=== PATIENT | female | born 1965 | race Caucasian/White ===

== ENCOUNTER 2016-09-14 14:31 | Emergency (ER) | payer BC ==
[2016-09-14 15:16] VITALS: RESP 18
--- NOTE | 2016-09-14 15:42 | ED ---
Head Injury HPI - General Chief complaint: Head Injury Stated complaint: Head Injury/Kicked/Horse Time Seen by Provider: 09/14/16 15:30 Source: patient, RN notes reviewed Mode of arrival: ambulatory Limitations: no limitations - History of Present Illness Initial comments: This is a 51-year-old female who states she was pushed backwards by a horse when a bed and was doing a procedure. She fell backwards and hurt her left arm and her neck and did bump her head. She had the headache it was moderate in severity and global she denies any focal deficits her upper or lower extremities a visual changes any nausea vomiting or other symptoms. [facility] was seen [facility] and had x-rays performed which showed evidence of no fractures she was placed in a soft collar for cervical strain but she was instructed to come here for evaluation for head injury. She does have a lump on the back of her head she states she again had no loss of consciousness is had no nausea vomiting. She does complain of a headache. She does state her last tetanus shot was 2 years ago. No prior history of concussion or head injury. MD Complaint: head injury - Related Data Home Medications Medication Instructions Recorded Confirmed Acetaminophen [Tylenol] 650 mg PO Q6HR PRN 09/14/16 09/14/16 Ibuprofen [Motrin] 400 mg PO Q6HR PRN 09/14/16 09/14/16 Allergies/Adverse reactions: Allergies Allergy/AdvReac Type Severity Reaction Status Date / Time latex Allergy Rash/Hives Verified 09/14/16 15:35 Review of Systems ROS Statement: Those systems with pertinent positive or pertinent negative responses have been documented in the HPI. ROS Other: All systems not noted in ROS Statement are negative. Past Medical History Past Medical History: No Reported History History of Any Multi-Drug Resistant Organisms: None Reported Past Surgical History: Orthopedic Surgery Additional Past Surgical History / Comment(s): arm Past Psychological History: No Psychological Hx Reported Smoking Status: Never smoker Past Alcohol Use History: Occasional Past Drug Use History: None Reported General Exam - General Exam Comments Initial Comments: This is a well-developed well-nourished awake alert oriented 3 female she does demonstrate a [place] Coma Scale of 15 Limitations: no limitations General appearance: alert, in no apparent distress Head exam: Present: normocephalic, other (There is a approximately 3 cm diameter hematoma noted to the parietal occipital scalp midline to left. There is about a 3 mm abrasion laceration with no active bleeding no formed by seen no suture repair indicated. No step-off no crepitation.) Eye exam: Present: normal appearance, PERRL, EOMI. Absent: scleral icterus, conjunctival injection, periorbital swelling ENT exam: Present: normal exam, mucous membranes moist Neck exam: Present: normal inspection, other (The patient does have a soft collar on her some tenderness palpation over the lateral neck musculature no spinous process tenderness.). Absent: tenderness, meningismus, lymphadenopathy Respiratory exam: Present: normal lung sounds bilaterally. Absent: respiratory distress, wheezes, rales, rhonchi, stridor Cardiovascular Exam: Present: regular rate, normal rhythm, normal heart sounds. Absent: systolic murmur, diastolic murmur, rubs, gallop, clicks GI/Abdominal exam: Present: soft, normal bowel sounds. Absent: distended, tenderness, guarding, rebound, rigid Extremities exam: Present: normal inspection, full ROM, normal capillary refill. Absent: tenderness, pedal edema, joint swelling, calf tenderness Back exam: Present: normal inspection Neurological exam: Present: alert, oriented X3, CN II-XII intact Psychiatric exam: Present: normal affect, normal mood Skin exam: Present: warm, dry, normal color. Absent: intact, rash Course Vital Signs 09/14/16 15:13 Temperature 98.0 F Pulse Rate 72 Respiratory 18 Rate Blood Pressure 161/76 O2 Sat by Pulse 100 Oximetry Medical Decision Making - Medical Decision Making I did discuss the findings with the patient. She will follow-up for an MRI. She does have a metal plate in her left forearm she's not sure whether this is paraspinal or not she will find out from her orthopedist. The CAT scan was negative for acute findings but as stated above there is evidence of dilatation of the right lateral ventricle - Radiology Data Radiology results: report reviewed (I did review the imaging and report no evidence of acute findings there is however evidence of dilatation of the right lateral ventricle is unclear whether this is a congenital finding versus something new. MRI is recommended.), image reviewed Disposition Clinical Impression: Contusion of scalp, Scalp abrasion, Cervical strain Disposition: HOME SELF-CARE Condition: Good Instructions: Abrasion (ED), Scalp Contusion in Adults (ED) Additional Instructions: Outpatient MRI of the brain as discussed. Follow up with [facility] for evaluation of the left upper extremity hardware and see if MRI is contraindicated.
--- NOTE | 2016-09-14 16:05 | CT ---
EXAMINATION TYPE: CT brain wo con DATE OF EXAM: 09/14/2016 3:54 PM COMPARISON: NONE HISTORY: 51-year-old female with left-sided head injury. TECHNIQUE: Examination was done in axial plane without intravenous contrast. Coronal and sagittal r econstructions performed. CT DLP: 1058 mGycm Automated exposure control for dose reduction was used. FINDINGS: There is no evidence of acute intracranial hemorrhage, acute ischemic changes, mass effect, or extra -axial fluid collection. There is no effacement of cerebral sulci or basal subarachnoid cisterns. T here is no hydrocephalus. There is no midline shift. [place]-white matter distinction is preserved. Asymmetric prominence to the temporal horn of the right lateral ventricle probably congenital variati on. The possibility of an intraventricular lesion such as a cyst is not entirely excluded. Scattered mild mucosal thickening within the ethmoid air cells. Orbits and globes are intact. Mastoid air cells well pneumatized. No calvarial fracture. IMPRESSION: 1. No acute intracranial abnormality seen. 2. Asymmetric dilatation of the temporal horn of the right lateral ventricle could represent congenit al variation. The possibility of an underlying intraventricular lesion is not entirely excluded. Foll ow-up contrast enhanced MRI can further evaluate. This is felt to be an incidental finding.
[2016-09-14 16:33] VITALS: BP 143/74; PULSE 74; TEMP 98.3
== END 2016-09-14 16:30 | disposition home or self-care (01) ==
LOC: EC 14:31
DX: S16.1XXA Strain of muscle, fascia and tendon at neck level, initial encounter (principal); S00.03XA Contusion of scalp, initial encounter; Z91.040 Latex allergy status; W19.XXXA Unspecified fall, initial encounter
CPT/HCPCS: 70450; 99283

== ENCOUNTER 2017-08-02 08:12 | Day surgery (SDC) | payer BC ==
[2017-07-31 13:33] VITALS: BMI 24.3
[~2017-08-02 08:12] MED LIST: LACTATED RINGERS 1,000 ML IV SCH
[2017-08-02 08:34] VITALS: RESP 16
[2017-08-02 08:37] VITALS: TEMP 98.7
[2017-08-02] MEDS ORDERED: LIDOCAINE 1% 20 ML VIAL (10MG/ML) FOR IV START INTRADERMA ONE (08:48)
[2017-08-02] MEDS ORDERED: PROPOFOL 10 MG/ML 20 ML VIAL IV ONE (09:35)
[2017-08-02] MEDS ORDERED: LIDOCAINE 1% INJ 10MG/ML (20 ML MDV) ONE (09:35)
--- NOTE | 2017-08-02 09:40 | P.GSHP ---
History of Present Illness H&P Date: 08/02/17 Chief Complaint: Colon cancer screening Patient here today for colonoscopy. Last colonoscopy 5 years ago. She had 2 polyps at that time. No bowel related complaints. She has a grandmother and uncle with a history of colon cancer. Past Medical History Past Medical History: No Reported History Additional Past Medical History / Comment(s): Mitral Valve Prolapse. History of Any Multi-Drug Resistant Organisms: None Reported Past Surgical History: Breast Surgery, Orthopedic Surgery Additional Past Surgical History / Comment(s): L arm with plate. D&C x 4. Breast bx's. Past Anesthesia/Blood Transfusion Reactions: Postoperative Nausea & Vomiting ( PONV) Additional Past Anesthesia/Blood Transfusion Reaction / Comment(s): Difficulty waking up. Smoking Status: Never smoker - Past Family History Father Family Medical History: Deep Vein Thrombosis (DVT) Mother Family Medical History: No Reported History Medications and Allergies Home Medications Medication Instructions Recorded Confirmed Type Ascorbic Acid [Vitamin C] 500 mg PO DAILY 07/31/17 08/02/17 History Cholecalciferol [Vitamin D3] 400 unit PO DAILY@1200 07/31/17 08/02/17 History Allergies Allergy/AdvReac Type Severity Reaction Status Date / Time latex Allergy Rash/Hives Verified 08/02/17 08:38 Surgical - Exam Vital Signs Resp 16 08/02/17 08:33 Physical exam: General: Well-developed, well-nourished HEENT: Normocephalic, sclerae nonicteric Abdomen: Nontender, nondistended Extremities: No edema Neuro: Alert and oriented Assessment and Plan (1) Colon cancer screening Narrative/Plan: Will proceed with colonoscopy at this time Current Visit: Yes Status: Acute Code(s): Z12.11 - ENCOUNTER FOR SCREENING FOR MALIGNANT NEOPLASM OF COLON SNOMED Code(s): 926778785
--- NOTE | 2017-08-02 09:56 | P.PCN ---
Date of Procedure: 08/02/17 Procedure(s) Performed: PREOPERATIVE DIAGNOSIS: Colon cancer screening, history of polyps POSTOPERATIVE DIAGNOSIS: Tortuous colon unable to advance beyond descending colon PROCEDURE: Attempted/incomplete colonoscopy ANESTHESIA: MAC SURGEON: Logan Rodríguez M.D. SPECIMENS: None ENDOSCOPIC PROCEDURE: The patient was placed on the endoscopy table in the left decubitus position. The Olympus colonoscope was inserted into the anus and passed under direct visualization to the mid descending colon. The patient had moderate tortuosity throughout the sigmoid colon. I was somewhat surprised but we were unable to advance the scope more proximally despite a variety of position changes and abdominal wall pressure. The visualized descending sigmoid and rectum appeared normal. There is no visible diverticulosis. Digital rectal examination was normal. The patient was taken to the recovery room in stable condition per anesthesia guidelines. RECOMMENDATIONS: Will offer barium enema to this patient.
[2017-08-02 10:24] VITALS: BP 144/88; PULSE 77
--- NOTE | 2017-08-02 11:50 | XR ---
EXAMINATION TYPE: XR KUB DATE OF EXAM: 08/02/2017 CLINICAL DATA: 52-year-old female postcolonoscopy, BE Remote Sensing Analyst, H COMPARISON: None FINDINGS: Supine imaging limited for assessment of free air. Prominent air distention of the colon especially t he cecum and ascending colon. There is underdistention of the mid descending colon. Multiple pelvic p hleboliths. Nonobstructive bowel gas pattern. IMPRESSION: Prominent air distention of the colon especially the right side of the colon. Focal underdistention o f the mid descending colon. Patient is status post colonoscopy. Barium enema rescheduled due to exces sive air.
== END 2017-08-02 10:49 | disposition home or self-care (01) ==
LOC: ORWHC2ENDO 08:12
PROVIDERS: ATTEND Surgery
DX: Z12.11 Encounter for screening for malignant neoplasm of colon (principal); Q43.8 Other specified congenital malformations of intestine; K63.89 Other specified diseases of intestine; Z86.010 Personal history of colon polyps; Z80.0 Family history of malignant neoplasm of digestive organs; I34.1 Nonrheumatic mitral (valve) prolapse; Z91.040 Latex allergy status
CPT/HCPCS: 74018; J2001; J2704; G0104; 45378

== ENCOUNTER → 2017-08-03 | Outpatient (CLI) | payer BC ==
--- NOTE | 2017-08-04 11:33 | FL ---
EXAMINATION TYPE: FL barium enema w air contrast DATE OF EXAM: 08/03/2017 CLINICAL HISTORY: 52-year-old female incomplete colonoscopy yesterday due to sigmoid colon tortuosity . Benign polyps removed on screening colonoscopy 5 years ago. Comparison: Radiographs 08/02/2017 TECHNIQUE: A double contrast barium enema study is performed. 1700 mL of Polibar was utilized. Total fluoroscopy time: 1 minute 48 seconds. Total images: 87 (though many are sent over as duplicates) COMPARISON: None. FINDINGS: Telecommunication Lines Repairer view of the abdomen nonobstructive bowel gas pattern. Interval decrease in the degree of air di stention of the colon. Multiple pelvic phleboliths. There was some technical difficulty and emptying the colon after contrast filling due to tortuosity o f both the sigmoid colon and transverse colon. In addition, after air administration, there are many areas of the colon that have irregular and gran ular appearance suggesting poor/nonuniform coating or residual stool. This causes limitation and dete ction of small, less than 1 cm polyps. A few diverticula are noted along the mid sigmoid. No evidence of any mass or sizable polyp, obstruct ing or constricting lesion throughout the colon. The terminal ileum was refluxed and appears within normal limits. IMPRESSION: 1. Some limitations in this study due to tortuosity of both the sigmoid and transverse colons. 2. Additional limitation due to either poor or nonuniform coating versus residual stool. This limits assessment for small, less than 1 cm polyps. 3. Mild diverticulosis of the mid sigmoid. 4. No definite suspicious lesion is identified.
== END | disposition home or self-care (01) ==
LOC: RADFLMAIN 08:00
PROVIDERS: ATTEND Surgery
DX: K63.5 Polyp of colon (principal); K62.1 Rectal polyp; K57.30 Diverticulosis of large intestine without perforation or abscess without bleeding
CPT/HCPCS: 74280

== ENCOUNTER → 2018-05-21 | Outpatient (CLI) | payer BC ==
--- NOTE | 2018-05-24 16:53 | MM ---
Reason for exam: screening (asymptomatic). Last mammogram was performed 1 year and 1 month ago. History: Patient is postmenopausal. Family history of breast cancer in paternal cousin at age 40 and breast cancer in paternal grandmother at age 67. Benign excisional biopsy of the left breast, 2012. Benign cyst aspiration of the right breast, 2002. Benign excisional biopsy of the right breast, 2002. MG 3D Screening Mammo W/Cad Bilateral CC and MLO view(s) were taken. Prior study comparison: April 24, 2017, bilateral MG 3d screening mammo w/cad. April 13, 2016, bilateral MG 3d screening mammo w/cad. The breast tissue is heterogeneously dense. This may lower the sensitivity of mammography. There is a left upper outer quadrant mass at 2:30 that appears to have increased in density. There are benign-appearing bilateral calcifications. No suspicious right breast abnormality. ASSESSMENT: Incomplete: need additional imaging evaluation, BI-RAD 0 RECOMMENDATION: Ultrasound of the left breast. Ultrasound left upper outer quadrant
== END ==
LOC: RADMAMWWP 08:21
PROVIDERS: ATTEND Obstetrics & Gynecology
DX: Z12.31 Encounter for screening mammogram for malignant neoplasm of breast (principal)
CPT/HCPCS: 77063; 77067

== ENCOUNTER → 2018-06-04 | Outpatient (CLI) | payer BC ==
--- NOTE | 2018-06-05 09:20 | USB ---
Reason for exam: additional evaluation requested from abnormal screening. History: Patient is postmenopausal. Family history of breast cancer in paternal cousin at age 40 and breast cancer in paternal grandmother at age 67. Benign excisional biopsy of the left breast, 2012. Benign cyst aspiration of the right breast, 2002. Benign excisional biopsy of the right breast, 2002. Physical Findings: Nurse Summary: bilateral upper outer quadrant nodularity, movable (nurse mj). US Breast Workup Limited LT Left limited breast ultrasound including focal area of concern, retroareolar and axilla demonstrates a 0.4 x 0.3 x 0.3cm oval, cystic lesion at 3 o'clock. These results were verbally communicated with the patient and result sheet given to the patient on 06/04/18. ASSESSMENT: Probably benign, BI-RAD 3 RECOMMENDATION: Follow-up diagnostic mammogram and ultrasound of the left breast in 6 months.
== END | disposition home or self-care (01) ==
LOC: RADUSWWP 09:59
PROVIDERS: ATTEND Obstetrics & Gynecology
DX: R92.8 Other abnormal and inconclusive findings on diagnostic imaging of breast (principal)

== ENCOUNTER → 2018-12-05 | Outpatient (CLI) | payer BC ==
--- NOTE | 2018-12-06 10:19 | MM ---
Reason for exam: follow-up at short interval from prior study. Last mammogram was performed 7 months ago. History: Patient is postmenopausal. Family history of breast cancer in paternal cousin at age 40 and breast cancer in paternal grandmother at age 67. Benign excisional biopsy of the left breast, 2012. Benign cyst aspiration of the right breast, 2002. Benign excisional biopsy of the right breast, 2002. Physical Findings: Nurse did not find any significant physical abnormalities on exam. MG 3D Diag Mammo W/Cad LT CC and MLO view(s) were taken of the left breast. Prior study comparison: May 21, 2018, bilateral MG 3d screening mammo w/cad. April 24, 2017, bilateral MG 3d screening mammo w/cad. The breast tissue is heterogeneously dense. This may lower the sensitivity of mammography. There is a stable left upper outer quadrant middle depth mass back to 2016. No suspicious abnormality on the left. This finding is changed when compared with previous exams. These results were verbally communicated with the patient and result sheet given to the patient on 12/05/18. ASSESSMENT: Benign, BI-RAD 2 RECOMMENDATION: Follow-up diagnostic mammogram of both breasts in 6 months. Back on schedule for May 2019.
--- NOTE | 2018-12-06 10:21 | USB ---
Reason for exam: follow-up at short interval from prior study. History: Patient is postmenopausal. Family history of breast cancer in paternal cousin at age 40 and breast cancer in paternal grandmother at age 67. Benign excisional biopsy of the left breast, 2012. Benign cyst aspiration of the right breast, 2002. Benign excisional biopsy of the right breast, 2002. US Breast Limited LT Left limited breast ultrasound including focal area of concern, retroareolar and axilla demonstrates a 4 x 3 x 3mm oval, cystic lesion at 3 o'clock, unchanged in size, appears cystic on real time imaging, a 5 x 4 x 3mm lobular, cystic cluster at 3 o'clock and a 6mm oval, solid, lymph node at the axilla tail, morphologically normal. These results were verbally communicated with the patient and result sheet given to the patient on 12/05/18. ASSESSMENT: Probably benign, BI-RAD 3 RECOMMENDATION: Ultrasound of the left breast in 6 months.
== END | disposition home or self-care (01) ==
LOC: RADMAMWWP 07:37
PROVIDERS: ATTEND Obstetrics & Gynecology
DX: R92.8 Other abnormal and inconclusive findings on diagnostic imaging of breast (principal)
CPT/HCPCS: 77061; 77065

== ENCOUNTER → 2019-06-21 | Outpatient (CLI) | payer BC ==
--- NOTE | 2019-06-21 10:24 | MM ---
Reason for exam: follow-up at short interval from prior study. Last mammogram was performed 6 months ago. History: Patient is postmenopausal. Family history of breast cancer in paternal cousin at age 40 and breast cancer in paternal grandmother at age 67. Benign excisional biopsy of the left breast, 2012. Benign cyst aspiration of the right breast, 2002. Benign excisional biopsy of the right breast, 2002. Physical Findings: Nurse did not find any significant physical abnormalities on exam. MG 3D Diag Mammo W/Cad [facility] Bilateral CC and MLO view(s) were taken. Prior study comparison: December 05, 2018, left breast MG 3d diag mammo w/cad LT. May 21, 2018, bilateral MG 3d screening mammo w/cad. The breast tissue is heterogeneously dense. This may lower the sensitivity of mammography. Benign appearing bilateral calcifications. No suspicious abnormality. No significant new findings when compared with previous films. These results were verbally communicated with the patient and result sheet given to the patient on 06/21/19. ASSESSMENT: Benign, BI-RAD 2 RECOMMENDATION: Follow-up diagnostic mammogram of both breasts in 1 year.
--- NOTE | 2019-06-21 10:27 | USB ---
Reason for exam: follow-up at short interval from prior study. History: Patient is postmenopausal. Family history of breast cancer in paternal cousin at age 40 and breast cancer in paternal grandmother at age 67. Benign excisional biopsy of the left breast, 2012. Benign cyst aspiration of the right breast, 2002. Benign excisional biopsy of the right breast, 2002. US Breast Limited LT Left limited breast ultrasound including focal area of concern, retroareolar and axilla demonstrates a 4 x 2 x 5mm lobular, mixed, probable cystic cluster at 1 o'clock, a 2 x 3 x 4mm lobular, cystic lesion at 3 o'clock, a 3 x 2 x 3mm oval, cystic lesion at 3 o'clock prior 4 x 3 x 3mm and a 6mm oval lymph node at the axilla tail. These results were verbally communicated with the patient and result sheet given to the patient on 06/21/19. ASSESSMENT: Probably benign, BI-RAD 3 RECOMMENDATION: Ultrasound of the left breast in 1 year.
== END | disposition home or self-care (01) ==
LOC: RADMAMWWP 07:43
PROVIDERS: ATTEND Obstetrics & Gynecology
DX: R92.8 Other abnormal and inconclusive findings on diagnostic imaging of breast (principal)
CPT/HCPCS: 77062; 77066

== ENCOUNTER → 2020-09-30 | Outpatient (CLI) | payer BC ==
--- NOTE | 2020-09-30 13:19 | MM ---
Reason for exam: additional evaluation requested from prior study. Last mammogram was performed 1 year and 3 months ago. History: Patient is postmenopausal. Family history of breast cancer in paternal cousin at age 40 and breast cancer in paternal grandmother at age 67. Benign excisional biopsy of the left breast, 2012. Benign cyst aspiration of the right breast, 2002. Benign excisional biopsy of the right breast, 2002. Physical Findings: Nurse did not find any significant physical abnormalities on exam. MG 3D Diag Mammo W/Cad [facility] Bilateral CC and MLO view(s) were taken. Prior study comparison: June 21, 2019, bilateral MG 3d diag mammo w/cad [facility]. December 05, 2018, left breast MG 3d diag mammo w/cad LT. The breast tissue is heterogeneously dense. This may lower the sensitivity of mammography. Bilateral axillary lymph node benign appearing. These results were verbally communicated with the patient and result sheet given to the patient on 09/30/20. ASSESSMENT: Incomplete: need additional imaging evaluation, BI-RAD 0 RECOMMENDATION: Ultrasound of the left breast. (repeat ultrasound from follow up)
--- NOTE | 2020-09-30 13:25 | USB ---
Reason for exam: additional evaluation requested from abnormal screening. History: Patient is postmenopausal. Family history of breast cancer in paternal cousin at age 40 and breast cancer in paternal grandmother at age 67. Benign excisional biopsy of the left breast, 2012. Benign cyst aspiration of the right breast, 2002. Benign excisional biopsy of the right breast, 2002. US Breast Limited LT Left limited breast ultrasound including focal area of concern, retroareolar and axilla demonstrates a 5 x 2 x 7mm oval, complex cyst or fibrocystic lesion at 1 o'clock, a 4 x 3 x 4mm oval, lobular, cystic lesion at 3 o'clock and a 4 x 3 x 3mm oval, cystic lesion at 3 o'clock. These results were verbally communicated with the patient and result sheet given to the patient on 09/30/20. ASSESSMENT: Probably benign, BI-RAD 3 RECOMMENDATION: Ultrasound of the left breast in 6 months.
== END | disposition home or self-care (01) ==
LOC: RADMAMWWP 10:38
PROVIDERS: ATTEND Obstetrics & Gynecology
DX: R92.2 Inconclusive mammogram (principal); N60.12 Diffuse cystic mastopathy of left breast; Z78.0 Asymptomatic menopausal state; Z80.3 Family history of malignant neoplasm of breast
CPT/HCPCS: 77062; 77066

== ENCOUNTER → 2021-05-03 | Outpatient (CLI) | payer BC ==
--- NOTE | 2021-05-03 10:38 | USB ---
Reason for exam: clinical finding. History: Patient is postmenopausal. Family history of breast cancer in paternal cousin at age 40 and breast cancer in paternal grandmother at age 67. Benign excisional biopsy of the left breast, 2012. Benign cyst aspiration of the right breast, 2002. Benign excisional biopsy of the right breast, 2002. Physical Findings: Nurse did not find any significant physical abnormalities on exam. US Breast LT Left limited breast ultrasound including focal area of concern, retroareolar and axilla demonstrates a 0.3 x 0.3 x 0.3cm round, cystic lesion at 12 o'clock and a 0.5 x 0.3 x 0.5cm oval, cystic lesion at 3 o'clock. These results were verbally communicated with the patient and result sheet given to the patient on 05/03/21. ASSESSMENT: Benign, BI-RAD 2 RECOMMENDATION: Routine screening mammogram of both breasts in 6 months. Back on schedule for September 2021.
== END | disposition home or self-care (01) ==
LOC: RADUSWWP 08:53
PROVIDERS: ATTEND Family Medicine
DX: N60.02 Solitary cyst of left breast (principal); Z78.0 Asymptomatic menopausal state; Z80.3 Family history of malignant neoplasm of breast

== ENCOUNTER → 2023-12-05 | Day surgery (SDC) | payer BC ==
[2023-12-04 08:46] VITALS: BMI 26.2
[~2023-12-05] MED LIST changes: -LACTATED RINGERS 1,000 ML IV SCH; +PROPOFOL 10 MG/ML 20 ML VIAL IV ONE
[2023-12-05 11:40] VITALS: RESP 16; TEMP 97
[2023-12-05] MEDS: LACTATED RINGERS 1,000 ML IV SCH (11:45)
[2023-12-05] MEDS: IV FLUID CONTINUATION 1,000 ML IV ONE (11:45)
--- NOTE | 2023-12-05 12:09 | P.GSHP ---
History of Present Illness H&P Date: 12/05/23 Chief Complaint: Colon cancer screening 58-year-old female here for colonoscopy. Last colonoscopy 6 years ago. Patient has history of colon polyps. Last colonoscopy 2018 was tortuous and we were unable to advance beyond the descending colon. Diverticulosis was seen. Barium enema performed the next day showed tortuous colon. Family history of colon cancer in a grandparent and uncle. Past Medical History Past Medical History: No Reported History, Skin Disorder Additional Past Medical History / Comment(s): Mitral Valve Prolapse. contact dermatitis History of Any Multi-Drug Resistant Organisms: None Reported Past Surgical History: Breast Surgery, Orthopedic Surgery Additional Past Surgical History / Comment(s): L arm with plate. D&C x 4. Breast bx's. Past Anesthesia/Blood Transfusion Reactions: Postoperative Nausea & Vomiting (PONV) Additional Past Anesthesia/Blood Transfusion Reaction / Comment(s): Difficulty waking up. no blood transfusion Smoking Status: Never smoker - Past Family History Father Family Medical History: Deep Vein Thrombosis (DVT) Mother Family Medical History: No Reported History Medications and Allergies Home Medications Medication Instructions Recorded Confirmed Type Ascorbic Acid [Vitamin C] 500 mg PO DAILY 07/31/17 12/04/23 History Cholecalciferol [Vitamin D3] 400 unit PO DAILY@1200 07/31/17 12/04/23 History Allergies Allergy/AdvReac Type Severity Reaction Status Date / Time latex Allergy Rash/Hives Verified 12/05/23 11:32 Surgical - Exam Vital Signs Temp Pulse Resp BP Pulse Ox 97.0 F L 66 16 151/69 99 12/05/23 11:39 12/05/23 11:39 12/05/23 11:39 12/05/23 11:39 12/05/23 11:39 Physical exam: General: Well-developed, well-nourished HEENT: Normocephalic, sclerae nonicteric Abdomen: Nontender, nondistended Extremities: No edema Neuro: Alert and oriented Assessment and Plan (1) Colon cancer screening Narrative/Plan: Will proceed with colonoscopy at this time. Current Visit: No Status: Acute Code(s): Z12.11 - ENCOUNTER FOR SCREENING FOR MALIGNANT NEOPLASM OF COLON SNOMED Code(s): 401587221
--- NOTE | 2023-12-05 12:24 | P.PCN ---
Date of Procedure: 12/05/23 Procedure(s) Performed: PREOPERATIVE DIAGNOSIS: Colon cancer screening POSTOPERATIVE DIAGNOSIS: Rectal polyp, diverticulosis PROCEDURE: Colonoscopy with snare polypectomy ANESTHESIA: MAC SURGEON: Logan Rodríguez M.D. SPECIMENS: Rectal polyp ENDOSCOPIC PROCEDURE: The patient was placed on the endoscopy table in the left decubitus position. The Olympus colonoscope was inserted into the anus and passed under direct visualization to the base of the cecum. The appendiceal orifice was visualized. From that point the scope was slowly withdrawn inspecting all surfaces carefully. There were no neoplastic inflammatory or polypoid lesions throughout the cecum, ascending, transverse, descending, and sigmoid colon. In the rectum a small polyp was seen and removed using the snare with cautery technique. There was mild scattered diverticulosis noted. Digital rectal examination was normal. The patient was taken to the recovery room in stable condition per anesthesia guidelines. RECOMMENDATIONS: Await biopsy results. Repeat colonoscopy pending pathology findings.
[2023-12-05 12:43] VITALS: BP 138/69; PULSE 68
== END ==
LOC: ORWHC2ENDO 10:53
PROVIDERS: ATTEND Surgery
DX: Z12.11 Encounter for screening for malignant neoplasm of colon (principal); D12.8 Benign neoplasm of rectum; K57.30 Diverticulosis of large intestine without perforation or abscess without bleeding; I34.1 Nonrheumatic mitral (valve) prolapse; Z83.2 Family history of diseases of the blood and blood-forming organs and certain disorders involving the immune mechanism; Z80.0 Family history of malignant neoplasm of digestive organs; Z91.040 Latex allergy status; Z86.010 Personal history of colon polyps; Z79.899 Other long term (current) drug therapy
CPT/HCPCS: 45385; J2704; 88305

== ENCOUNTER → 2024-03-04 | Outpatient (CLI) | payer BC ==
--- NOTE | 2024-03-05 08:47 | MM ---
Reason for Exam: Screening (asymptomatic). Last screening mammogram was performed 12 month(s) ago. Patient History: Menarche at age 12. First Full-Term at age 24. Postmenopausal. 2012, Benign Excisional Biopsy on the left side. 2002, Benign Cyst Aspiration on the right side. 2002, Benign Excisional Biopsy on the right side. Paternal grandmother had breast cancer, age 67. Paternal cousin had breast cancer, age 40. Risk Values: Keren 5 year model risk: 1.8%. NCI Lifetime model risk: 10.2%. Prior Study Comparison: 09/30/2020 Bilateral Diagnostic Mammogram, [facility]. 12/27/2021 Bilateral MG 3D screening mammo w/cad, [facility]. 02/06/2023 Bilateral MG 3D screening mammo w/cad, [facility]. Tissue Density: There are scattered areas of fibroglandular density. Findings: Analyzed By CAD. Right breast: There is no suspicious group of microcalcifications or new suspicious mass. Left breast: There is no suspicious group of microcalcifications or new suspicious mass. Overall Assessment: Negative, BI-RAD 1 Management: Screening Mammogram of both breasts in [address] [facility] will attempt to contact patient to return for supplemental views and ultrasound if indicated. Patient should continue monthly self-breast exams. A clinical breast exam by your physician is recommended on an annual basis. This exam should not preclude additional follow-up of suspicious palpable abnormalities. Note on Keren scores and lifetime risk: 1. A Keren score greater than 3% is considered moderate risk. If this is the case, consider specialist referral to assess eligibility for a risk reducing agent. 2. If overall lifetime risk for the development of breast cancer is 20% or higher, the patient may qualify for future screening with alternating mammogram and breast MRI. [facility], , 03/05/2024 8:37 AM. Electronically signed and approved by: Michael Lo DO
== END | disposition home or self-care (01) ==
LOC: RADMAMWWP 07:54
PROVIDERS: ATTEND Family Medicine
CPT/HCPCS: 77063; 77067